=== PATIENT | female | born 1965 | race African-American/Black ===

== ENCOUNTER → 2017-10-09 | Day surgery (SDC) | payer OTHER ==
[~2017-10-09] MED LIST: LIDOCAINE 1% PF 2 ML VIAL. ID; LIDOCAINE 2% PF Vial for OR 5 ML VIAL.; MIDAZOLAM HCL/PF 2 MG/2 ML VIAL. IV; PROPOFOL 40 ML IV; fentaNYL PF VIAL 100 MCG/2 ML VIAL IV
[2017-10-09] MEDS: IV RINGERS,LACTATED 1000ML 1,000 ML IV (09:27)
== END | disposition home or self-care (01) ==
LOC: SURG 08:55
DX: Z12.11 Encounter for screening for malignant neoplasm of colon (principal); K64.0 First degree hemorrhoids; K21.0 Gastro-esophageal reflux disease with esophagitis; K31.89 Other diseases of stomach and duodenum; Z83.71 Family history of colonic polyps; Z85.3 Personal history of malignant neoplasm of breast; Z83.3 Family history of diabetes mellitus; Z82.49 Family history of ischemic heart disease and other diseases of the circulatory system; Z79.899 Other long term (current) drug therapy; Z90.5 Acquired absence of kidney; Z90.10 Acquired absence of unspecified breast and nipple
CPT/HCPCS: 43239; 45378; 88305; 88342; J2001; J2704